=== PATIENT | female | born 1955 | race American Indian/Alaskan Native ===

== ENCOUNTER 2018-06-11 08:02 | Day surgery (SDC) | payer MEDICARE, MEDICAID ==
[2018-06-07 14:56] VITALS: BMI 36.6
[2018-06-11] MEDS ORDERED: Propofol 10 mg/ml Inj (20 ML) ONE ×2 (09:23→09:30)
[2018-06-11] MEDS ORDERED: Sodium Chloride 0.9% 1,000 ML IV SCH (10:00)
[2018-06-11 12:50] VITALS: BP 135/77; PULSE 69; RESP 16; TEMP 98.4; O2SAT 99
== END 2018-06-11 11:14 | disposition home or self-care (01) ==
LOC: ENDO 08:02
PROVIDERS: ATTEND Internal Medicine Gastroenterology
DX: Z12.11 Encounter for screening for malignant neoplasm of colon (principal); D12.5 Benign neoplasm of sigmoid colon; K57.30 Diverticulosis of large intestine without perforation or abscess without bleeding; K64.1 Second degree hemorrhoids
CPT/HCPCS: 45385; 88305; J2704; J7030; J7040

== ENCOUNTER 2018-07-23 07:25 | Day surgery (SDC) | payer MEDICARE, MEDICAID ==
[2018-07-21 12:59] VITALS: BMI 38.2
[2018-07-23] MEDS ORDERED: Propofol 10 mg/ml Inj (20 ML) ONE (08:44)
[2018-07-23] MEDS ORDERED: Phenylephrine 10 mg/ml Inj ONE (08:45)
[2018-07-23] MEDS ORDERED: Sodium Chloride 0.9% 1,000 ML IV SCH (09:15)
[2018-07-23 13:45] VITALS: BP 145/55; PULSE 64; RESP 16; TEMP 98.1; O2SAT 99
== END 2018-07-23 10:21 | disposition home or self-care (01) ==
LOC: ENDO 07:25
PROVIDERS: ATTEND Internal Medicine Gastroenterology
DX: K29.70 Gastritis, unspecified, without bleeding (principal); R10.13 Epigastric pain

== ENCOUNTER 2018-11-02 10:37 | Outpatient (CLI) | payer MEDICARE, MEDICAID | END 2018-11-02 10:38 | disposition home or self-care (01) | LOC: RAD 10:37 ==